=== PATIENT | male | born 1995 | race Caucasian/White ===

== ENCOUNTER 2016-08-23 21:49 | Emergency (ER) | payer BC ==
[~2016-08-23] VITALS: Ht 167.6 cm; Wt 67.9 kg
[2016-08-23 21:53] VITALS: Ht 167.6 cm; Wt 67.9 kg
[2016-08-23] MEDS ORDERED: PRED20TA2 PO (22:05)
--- NOTE | 2016-08-23 22:05 | EMERGENCY ROOM VISIT NOTE ---
History Report prepared by King: Lisbeth Paige Under the Supervision of: Dr. Shon Loco M.D. First contact with patient: 21:57 Chief Complaint: TESTICULAR PAIN Stated Complaint: SWELLING IN GENETALS, BUG BITES, RASH Nursing Triage Summary: c/o bug bites to private area and now c/o left scrotal swelling. denies urinary symptoms. History of Present Illness The patient is a 20 year old male who presents to the Emergency Room with complaints of persistent testicular swelling that began today. The patient states that this weekend he was outside and came in contact with poison krysta. He additionally notes multiple bug and spider bites. The patient states that he noticed a rash to his genital area and states that it was itchy. He states that the area became edematous after he itched the area. The patient states that he took a shower which slightly alleviated the swelling. He denies any urinary symptoms or pain. The patient denies any concern for an STD. Source of History: patient Onset: today Position: other (testicular) Quality: other (swelling) Timing: other (persistent) Modifying Factors (Relieving): other (taking a shower) Associated Symptoms: + rash (to genital area), No urinary symptoms Review of Systems See HPI for pertinent positives & negatives. A total of 10 systems reviewed and were otherwise negative. Past Medical & Surgical No active medical problems stated. Family History No pertinent family history stated. Social History Smoking Status: Former Smoker Current/Historical Medications Scheduled Prednisone (Prednisone Tab), 0 PO DAILY Physical Exam Vital Signs Date Time Temp Pulse Resp B/P (MAP) Pulse Ox O2 Delivery O2 Flow Rate FiO2 08/23/16 22:18 36.9 67 18 154/98 97 08/23/16 21:53 36.9 67 18 154/98 97 Room Air Physical Exam GENERAL: Patient is a healthy-appearing well-nourished male HEAD: Normocephalic atraumatic EYES: Ocular movements intact pupils equal and react to light OROPHARYNX mucous membranes are moist no exudates present no erythema or edema present NECK: Supple no nuchal rigidity CHEST: Good equal expansion LUNGS: Clear and equal to auscultation CARDIAC: Normal S1 and S2 ABDOMEN: Soft nontender no guarding BACK: No CVA tenderness EXTREMITIES: No pain upon palpation normal muscle strength in all groups no clubbing cyanosis or edema NEURO: Patient is following commands and answering questions appropriately. Alert and oriented x3 Cranial Nerves 2-12 grossly intact SKIN: Poison krysta lesions to his arms and Penis shaft. Medical Decision & Procedures Medications Administered Medications (Trade) Dose Ordered Sig/Irvin Route Start Time Stop Time Status Last Admin Dose Admin Prednisone (PredniSONE TAB) 60 mg NOW STAT PO 08/23/16 22:02 08/23/16 22:04 DC 08/23/16 22:15 60 MG ED Course 2199: Past medical records reviewed. The patient was evaluated in room B5. A complete history and physical examination was performed. I discussed the exam findings with him and I discussed the treatment plan. He verbalized complete understanding and agreement. He is ready to go home. 2201: Ordered Prednisone 60 mg PO. Medical Decision Differential diagnosis: Etiologies such as contact dermatitis, viral exanthem, urticaria, allergic reaction, Peter-Abel syndrome, toxic epidermal necrolysis, erythema multiforme, cellulitis, scabies, HSV, varicella, zoster, eczema, staph scalded skin syndrome, fungal infection, as well as others were entertained. Medication Reconciliation: I attest that I have personally reviewed the patient' s current medication list Blood Pressure Screening: Patient was found to have an elevated blood pressure and was referred to their primary care doctor for recheck and further treatment This is a 20-year-old male who presents emergency department complaining of poison krysta to his penis is well as his arms. The patient was given prednisone here in the emergency department 60 mg. I advised the patient to use Benadryl at home. I'll continue him on a prednisone taper over the next week. Patient was in agreement with the treatment plan. Impression Primary Impression: Poison krysta dermatitis Scribe Attestation The scribe's documentation has been prepared under my direction and personally reviewed by me in its entirety. I confirm that the note above accurately reflects all work, treatment, procedures, and medical decision making performed by me. Departure Information Dispostion Home / Self-Care Prescriptions Prednisone (Prednisone Tab) 20 Mg Tab 0 PO DAILY, #7 TAB 2 TABS DAILY FOR 2 DAYS, THEN 1 TAB DAILY FOR 2 DAYS, THEN 1/2 TAB DAILY FOR 2 DAYS. Prov: Shon Loco MD 08/23/16 Referrals No Doctor, Assigned (PCP) Forms HOME CARE DOCUMENTATION FORM, IMPORTANT VISIT INFORMATION, WORK / SCHOOL INSTRUCTIONS Patient Instructions ED Dermatitis Poison [facility] Additional Instructions Take 50 mg Benadryl every 6 hours as needed for itching You have been examined and treated today on an emergency basis only. This is not a substitute for, or an effort to provide, complete comprehensive medical care. It is impossible to recognize and treat all injuries or illnesses in a single emergency department visit. It is therefore important that you follow up closely with your PCP. Call as soon as possible for an appointment. Thank you for your time and consideration. I look forward to speaking with you again soon. Please don't hesitate to call us if you have any questions.
[2016-08-23 22:18] VITALS: BP 154/98; PULSE 67; TEMP 36.9; O2SAT 97
== END 2016-08-23 22:22 | disposition home or self-care (01) ==
LOC: C.EDB 21:52
DX: L23.7 Allergic contact dermatitis due to plants, except food (principal); Z87.891 Personal history of nicotine dependence